=== PATIENT | female | born 1990 | race Caucasian/White ===

== ENCOUNTER → 2021-07-01 11:09 | Outpatient (CLI) | payer OTHER, SELFPAY ==
[2021-07-01 12:54] LABS: Add Manual Diff / Slide Review NO; Basophils Absolute Auto 0 /uL (0-100); Basophils Percent Auto 0.6 % (0-2); Eosinophils Absolute Auto 100 /uL (0-450); Eosinophils Percent Auto 0.7 % (2-4); Hematocrit 40.1 % (36-46); Hemoglobin 13.9 g/dL (12.0-16.0); Lymphocytes Absolute Auto 2700 /uL (1100-4500); Lymphocytes Percent Auto 35.7 % (25-40); Mean Corpuscular HGB Conc 34.7 % (30-36); Mean Corpuscular Volume 89.4 fL (80-100); Monocytes Absolute Auto 400 /uL (0-900); Monocytes Percent Auto 5.5 % (3-14); Neutrophils Absolute Auto 4400 /uL (1500-7000); Neutrophils Percent Auto 57.5 % (50-75); Platelet Count 290 X10^3/uL (150-400); Red Blood Cell Count 4.49 X10^6/uL (4.0-5.2); Red Cell Distribution Width 12.9 % (11.6-14.8); White Blood Cell Count 7.6 X10^3/uL (4.5-11.0)
[2021-07-01 13:15] LABS: Alanine Aminotransferase 19 IU/L (<35); Albumin Globulin Ratio 1.9 (1.0-2.8); Alkaline Phosphatase 47 U/L (38-126); Aspartate Aminotransferase 24 IU/L (14-36); BUN Creatinine Ratio 12.3 (6-22); Bilirubin Total 0.9 mg/dL (0.2-1.3); Blood Urea Nitrogen 9 mg/dL (7-17); Carbon Dioxide 24 mmol/L (22-32); Chloride 103 mmol/L (98-107); Estimated Glomerular Filt Rate > 60.0 mL/min (>60); Globulin 2.7 g/dL (1.7-4.1); Glucose 91 mg/dL (70-100); HEMOLYSIS < 15 (0-50); Potassium 4.1 mmol/L (3.4-5.1); Sodium 139 mmol/L (137-145); Total Protein 7.7 g/dL (6.3-8.2)
== END ==
PROVIDERS: Referring Provider Family Medicine; Visit Provider Family Medicine
DX: N92.0 Excessive and frequent menstruation with regular cycle (principal); Z00.00 Encounter for general adult medical examination without abnormal findings; Z87.42 Personal history of other diseases of the female genital tract
CPT/HCPCS: 36415; 80053; 84443; 85025

== ENCOUNTER → 2021-08-18 14:32 | Outpatient (CLI) | payer OTHER, SELFPAY ==
--- NOTE | 2021-08-18 14:35 | DI.RAD.S_ITS ---
PROCEDURE: XR LUMBAR SPINE 2-3V INDICATIONS: PAIN AFTER FALL TECHNIQUE: 3 views of the lumbar spine were acquired. COMPARISON: [facility], CT, CT ABDOMEN PELVIS WITH CONTRAST, 02/17/2021, 18:52. FINDINGS: Bones: 6 [id number] vertebrae are present versus 5 non rib-bearing vertebral bodies with tiny riblets at T12. No comparison studies available to confirm number of paired ribs. There is normal bony alignment. No acute vertebral body compression fractures. No suspicious bony lesions. Minimal lower lumbar spondylosis. Soft tissues: Overlying bowel gas pattern is normal. No suspicious soft tissue calcifications. IMPRESSION: Lumbar spine without acute fracture or traumatic malalignment. Dictated by: Reynold Christy M.D. on 08/18/2021 at 15:09 Approved by: Reynold Christy M.D. on 08/18/2021 at 15:12
== END ==
PROVIDERS: PCP Family Medicine; Referring Provider Internal Medicine; Visit Provider Internal Medicine
DX: M54.50 Low back pain, unspecified (principal); G89.11 Acute pain due to trauma
CPT/HCPCS: 72100

== ENCOUNTER 2023-04-21 10:29 | Emergency (ER) | payer OTHER, SELFPAY ==
[2023-04-21 10:30] VITALS: BP 149/94; PULSE 103; RESP 16; TEMP 36.4; O2SAT 97; BMI 25.0
[2023-04-21 10:40] VITALS: PULSE 107; O2SAT 98
--- NOTE | 2023-04-21 10:49 | DI.US.S_ITS ---
PROCEDURE: US PELVIC COMPLETE INDICATIONS: LEFT LOWER QUADRANT PAIN TECHNIQUE: Real-time scanning was performed of the pelvic organs, with image documentation. Additional endovaginal scanning was necessary due to incomplete visualization of the adnexal and endometrial structures by transabdominal scanning. COMPARISON: None. FINDINGS: Uterus: Status post hysterectomy. Ovaries: The right ovary measures 2.6 x 1.3 x 2.1 cm, with a calculated ovarian volume of 3.8 cc. The left ovary measures 3.3 x 1.3 x 1.5 cm, with a calculated ovarian volume of 3.5 cc. The ovaries have a normal sonographic appearance. Less than 12 follicles can be seen in each ovary. No adnexal masses are seen. Other: No pathologic free abdominal or pelvic fluid. IMPRESSION: No sonographic signs of ovarian torsion. No acute abnormality identified. Status post hysterectomy. Approved by: Orlin Willard M.D. on 04/21/2023 at 12:26
--- NOTE | 2023-04-21 10:49 | ED.GENADULT ---
HPI - General Adult General Chief complaint: Abdominal Pain Stated complaint: LL ABD pain Time Seen by Provider: 04/21/23 10:40 Source: patient Mode of arrival: Ambulatory History of Present Illness HPI narrative: 32-year-old female with history of known left ovarian cyst presents with a chief complaint of gradually worsening left lower quadrant pain over the course of the day. She states she went to bed in her normal state of health and woke up with some pain that has been gradually worsening. Her pain is significantly worse when she moves and improves with rest. She denies any radiation of the pain. She states it is sharp, stabbing and quite intense. She is nauseated but denies any vomiting. She had a bowel movement this morning and denies urinary complaints such as dysuria, frequency or urgency Related Data Home Medications Medication Instructions Recorded Confirmed Control Pill ( Control) 1 tab PO EVERY DAY ##0 05/27/08 celecoxib 100 mg capsule (Celebrex) 100 mg PO 0800 ##0 01/23/13 fluoxetine 10 mg capsule (Prozac) 75 mg PO QDAY ##0 01/23/13 pregabalin 25 mg capsule (Lyrica) 25 mg PO BID ##2 01/23/13 quetiapine 100 mg tablet (Seroquel) 100 mg PO BID ##0 01/23/13 topiramate 100 mg tablet (Topamax) 100 mg PO ##0 01/23/13 zolpidem 10 mg tablet (Ambien) 10 mg PO HS ##0 01/23/13 Previous Rx's Medication Instructions Recorded etonogestrel 0.12 mg-ethinyl 1 icr VG SEE INSTRUCTIONS #2 units 01/23/13 estradiol 0.015 mg/24 hr vaginal ring (NuvaRing) amoxicillin 875 mg-potassium 1 tab PO Q12H #20 tabs 04/21/23 clavulanate 125 mg tablet fluconazole 150 mg tablet 150 mg PO Q3D 2 doses #2 tabs 04/21/23 hydrocodone 5 mg-acetaminophen 325 1 tab PO Q4-6H PRN pain #10 tabs 04/21/23 mg tablet ondansetron 4 mg disintegrating 4 mg PO TID-QID PRN nausea and 04/21/23 tablet vomiting #10 tabs Allergies Allergy/AdvReac Type Severity Reaction Status Date / Time bupropion [BUPROPION] Allergy Unknown Verified 04/21/23 10:42 gabapentin [GABAPENTIN] Allergy Unknown Verified 04/21/23 10:42 Review of Systems Review of Systems Narrative: GENERAL: Denies chills, fatigue, malaise, fever, sweats. HEENT: Denies sinus pain, ear pain, sore throat, difficulty swallowing, dizziness. RESPIRATORY: Denies dyspnea, cough, wheezing, hemoptysis, sputum. CARDIOVASCULAR: Denies chest pain, palpitations, orthopnea, edema, GASTROINTESTINAL: See HPI : Denies dysuria, frequency, incontinence, hematuria, urinary retention. MUSCULOSKELETAL: denies weakness, joint pain, or bony pain SKIN: Denies rash, skin lesions, or other NEUROLOGIC: Denies weakness, headache, numbness, change in speech, confusion, seizures, incoordination. PSYCHIATRIC: No concerning psychosocial issues. 12 point review of systems is negative except for those stated above Patient History Social History Smoking Status: Unknown if ever smoked Smoking Status: Unknown if ever smoked alcohol intake frequency: holidays/special occasions only Substance Use Type: does not use Exam Narrative Exam Narrative: GENERAL: [32] year old patient appears stated age. Well-developed patient, in mild distress. HEAD: Atraumatic. Normocephalic. EYES: Pupils equal round and reactive. Extraocular motions intact. No scleral icterus. No injection or drainage. ENT: Nose without bleeding, purulent drainage. Throat without erythema, tonsillar hypertrophy or exudate. Airway patent. NECK: Trachea midline. Non tender CARDIOVASCULAR: Regular rate and rhythm without murmurs, gallops, or rubs. RESPIRATORY: Clear to auscultation. Breath sounds equal bilaterally. No wheezes, rales, or rhonchi. GASTROINTESTINAL: Abdomen soft, LLQ pain, localized voluntary guarding, nondistended. EXTREMITIES: No edema or joint tenderness. BACK: Nontender without deformity or crepitance. No flank tenderness. NEURO: AOx3. SKIN: No rash or erythema of visible areas Initial Vital Signs Initial Vital Signs: Vital Signs Temperature 97.5 F L 04/21/23 10:30 Pulse Rate 103 H 04/21/23 10:30 Respiratory Rate 16 04/21/23 10:30 Blood Pressure 149/94 H 04/21/23 10:30 Pulse Oximetry 97 04/21/23 10:30 Oxygen Delivery Method Room Air 04/21/23 10:30 Course Orders Ordered: Discontinued Medications Hydromorphone HCl (Hydromorphone 0.5 Mg Inj) 0.5 mg IV NOW ONE Stop: 04/21/23 12:26 Last Admin: 04/21/23 12:30 Dose: 0.5 mg Documented By: JEANINE Sodium Chloride (Normal Saline 0.9%) 1,000 mls @ 1,000 mls/hr IV BOLUS ONE Stop: 04/21/23 12:14 Last Infusion: 04/21/23 12:26 Dose: 0 mls/hr Documented By: Admin: 04/21/23 11:25 Dose: 1,000 mls/hr Documented By: JEANINE Ketorolac Tromethamine (Ketorolac 30 Mg/Ml Vial) 15 mg IV NOW ONE Stop: 04/21/23 11:16 Last Admin: 04/21/23 11:25 Dose: 15 mg Documented By: JEANINE Vital Signs Vital signs: Vital Signs - 8 hr 04/21/23 10:30 04/21/23 10:40 04/21/23 11:00 Temperature 97.5 F L Pulse Rate 103 H 107 H 94 H Respiratory Rate 16 Blood Pressure 149/94 H Pulse Oximetry 97 98 99 Oxygen Delivery Method Room Air Medical Decision Making Lab Data 04/21/23 11:00 04/21/23 11:00 Labs: Lab Results 04/21/23 04/21/23 04/21/23 Range/Units 10:34 11:00 11:00 WBC 7.3 (4.5-11.0) X10^3/uL RBC 4.73 (4.0-5.2) X10^6/uL Hgb 14.6 (12.0-16.0) g/dL Hct 41.1 (36-46) % MCV 86.8 (80-100) fL MCH 30.7 (26-34) PG MCHC 35.4 (30-36) % RDW 12.5 (11.6-14.8) % Plt Count 284 (150-400) X10^3/uL Neut % (Auto) 51.3 (50-75) % Lymph % (Auto) 43.2 H (25-40) % [place] % (Auto) 4.2 (3-14) % Eos % (Auto) 0.7 L (2-4) % Baso % (Auto) 0.6 (0-2) % Neut # (Auto) 3700 (4140-0772) /uL Lymph # (Auto) 3200 (4254-7579) /uL [place] # (Auto) 300 (0-900) /uL Eos # (Auto) 100 (0-450) /uL Baso # (Auto) 0 (0-100) /uL Sodium 138 (137-145) mmol/L Potassium 3.9 (3.4-5.1) mmol/L Chloride 104 (98-107) mmol/L Carbon Dioxide 23 (22-32) mmol/L BUN 10 (7-17) mg/dL Creatinine 0.65 (0.52-1.04) mg/dL Estimated GFR > 60 (>60) mL/min BUN/Creatinine Ratio 15.4 (6-22) Glucose 92 (70-100) mg/dL Calcium 9.8 (8.4-10.2) mg/dL Total Bilirubin 1.0 (0.2-1.3) mg/dL AST 29 (14-36) IU/L ALT 20 (<35) IU/L Alkaline Phosphatase 41 (38-126) U/L Total Protein 8.1 (6.3-8.2) g/dL Albumin 5.0 (3.5-5.0) g/dL Globulin 3.1 (1.7-4.1) g/dL Albumin/Globulin Ratio 1.6 (1.0-2.8) Urine RBC 0-1/hpf (0-5/HPF) Urine WBC None seen (0-5/HPF) Ur Squamous Epith Cells 0-1 /hpf (0-5/HPF) Urine Bacteria Moderate (10-30) H (None) Ur Culture Indicated? Specimen cultured Urine Dip Bedside Urine Glucose Negative Bedside Urine Bilirubin - Negative Bedside Urine Ketone +/- 5 Urine Specific [place] 1.010 Bedside Urine Occult Blood ++ Bedside Urine pH 6.0 Bedside Urine Protein - Negative Bedside Urine Urobilinogen - Negative Bedside Urine Nitrite - Negative Bedside Urine Leukocytes - Negative Esterase Point of care testing: Urine Dip Bedside Urine Glucose Negative Bedside Urine Bilirubin - Negative Bedside Urine Ketone +/- 5 Urine Specific [place] 1.010 Bedside Urine Occult Blood ++ Bedside Urine pH 6.0 Bedside Urine Protein - Negative Bedside Urine Urobilinogen - Negative Bedside Urine Nitrite - Negative Bedside Urine Leukocytes - Negative Esterase MDM Narrative Medical decision making narrative: [32] year old patient presents with GI complaints lower abdominal Multiple etiologies for patient's symptoms considered including, but not limited to: [Bowel obstruction versus infectious diarrhea versus ovarian problem versus kidney stone versus other] Prior Charts reviewed in our EMR Primary Historian: patient Labs reviewed and interpreted by myself: No significant abnormalities requiring a specific intervention Imaging reviewed: CT demonstrates colonic wall thickening involving the transverse descending and sigmoid colon, mild diverticulosis without diverticulitis., pelvic ultrasound shows no significant abnormality Patient's symptoms improved over duration of stay with above-stated therapies. Pain is well controlled, she is tolerating orals, vital signs stable. Nausea with episodes of diarrhea and crampy, colicky abdominal pain was stable labs and imaging showing colitis in the absence of obstruction, perforation or abscess Findings and discharge diagnosis discussed with patient/family followed by verbalization of understanding Return precautions discussed with patient/family whom verbalize understanding of diagnosis and plan Discharge Plan Departure Patient Disposition: Home Clinical Impression: Colitis Instructions: DI for Abdominal Pain-Adult Activity Restrictions/Additional Instructions: *You have been diagnosed with [abdominal pain likely due to mild colitis] *What to do: *Please continue to take your regular medications as directed. [x ] New medication prescriptions sent to your pharmacy: [[facility] ] *Please follow up with your primary care provider in 2-3 days, call for an appointment. Let them know you were seen in the Emergency Department and that we ask that you be seen in follow up. We will electronically transmit a record of today's note if your PCP is in our system *Please consider a clear liquid diet for the next 24-48 hours and then slowly advance to regular as tolerated. Also, try to avoid alcohol, nicotine, caffeine, spicy, acidic or fatty foods as this may worsen your symptoms *If you do not have a primary care provider please contact the [facility] Resource line at [phone]. They will ask some questions about your medical history and help get you set up with a doctor in the community. *Return to Emergency Department if you should have any new, worsening or concerning symptoms, such as [fever greater than 101 F, shaking chills, worsening pain, persistent vomiting or other bothersome symptoms] You have been prescribed a short course of narcotic medications. These are potentially dangerous and addictive medications that should be used carefully. While on these medications you cannot drive or operate heavy machinery. Additionally, you cannot sign legal documents or perform any duties such as this. Many people get constipated on narcotic medications so it would be advisable to discuss stool softeners with the pharmacist when you lemon picker your prescription. Please understand that we cannot provide further refills of narcotics or controlled substances through the ED and your pain management will need to be through your Primary Care Provider Prescriptions: New fluconazole 150 mg tablet 150 mg PO Q3D Qty: 2 0RF Rx Instructions: may repeat second dose 72 hrs after first dose if symptoms persist hydrocodone-acetaminophen 5-325 mg tablet 1 tab PO Q4-6H PRN (Reason: pain) Qty: 10 0RF ondansetron 4 mg tablet,disintegrating 4 mg PO TID-QID PRN (Reason: nausea and vomiting) Qty: 10 0RF amoxicillin-pot clavulanate 875-125 mg tablet 1 tab PO Q12H Qty: 20 0RF No Action Control Pill ( Control) 1 tab PO EVERY DAY Qty: 0 zolpidem [Ambien] 10 MG tablet 10 mg PO HS Qty: 0 quetiapine [Seroquel] 100 MG tablet 100 mg PO BID Qty: 0 fluoxetine [Prozac] 10 MG capsule 75 mg PO QDAY Qty: 0 celecoxib [Celebrex] 100 MG capsule 100 mg PO 0800 Qty: 0 topiramate [Topamax] 100 MG tablet 100 mg PO Qty: 0 pregabalin [Lyrica] 25 MG capsule 25 mg PO BID Qty: 2 etonogestrel-ethinyl estradiol [NuvaRing] 1 EACH ring 1 icr VG SEE INSTRUCTIONS Qty: 2 1RF Referrals: Sebastián Brown MD [Primary Care Provider] - Stand Alone Forms: Patient Portal/API
[2023-04-21 11:00] VITALS: PULSE 94; O2SAT 99
[2023-04-21] MEDS: SODIUM CHLORIDE 0.9% 1,000 ML 1000 ML IV (11:25)
[2023-04-21] MEDS: KETOROLAC 30 MG/ML VIAL 15 MG IV (11:25)
[2023-04-21 11:36] LABS: Add Manual Diff / Slide Review NO; Basophils Absolute Auto 0 /uL (0-100); Basophils Percent Auto 0.6 % (0-2); Eosinophils Absolute Auto 100 /uL (0-450); Eosinophils Percent Auto 0.7 % (2-4); Hematocrit 41.1 % (36-46); Hemoglobin 14.6 g/dL (12.0-16.0); Lymphocytes Absolute Auto 3200 /uL (1100-4500); Lymphocytes Percent Auto 43.2 % (25-40); Mean Corpuscular HGB Conc 35.4 % (30-36); Mean Corpuscular Hemoglobin 30.7 PG (26-34); Mean Corpuscular Volume 86.8 fL (80-100); Monocytes Absolute Auto 300 /uL (0-900); Monocytes Percent Auto 4.2 % (3-14); Neutrophils Absolute Auto 3700 /uL (1500-7000); Neutrophils Percent Auto 51.3 % (50-75); Platelet Count 284 X10^3/uL (150-400); Red Blood Cell Count 4.73 X10^6/uL (4.0-5.2); Red Cell Distribution Width 12.5 % (11.6-14.8); White Blood Cell Count 7.3 X10^3/uL (4.5-11.0)
[2023-04-21 11:41] LABS: Bacteria Urine Moderate (10-30); Culture Indicated Urine Specimen Cultured; RBC Urine 0-1/HPF (0-5/HPF); Squamous Epithelial Cell Urine 0-1 /HPF (0-5/HPF); WBC Urine None Seen (0-5/HPF)
[2023-04-21 11:42] LABS: Alanine Aminotransferase 20 IU/L (<35); Albumin Globulin Ratio 1.6 (1.0-2.8); Alkaline Phosphatase 41 U/L (38-126); Aspartate Aminotransferase 29 IU/L (14-36); BUN Creatinine Ratio 15.4 (6-22); Blood Urea Nitrogen 10 mg/dL (7-17); Calcium 9.8 mg/dL (8.4-10.2); Carbon Dioxide 23 mmol/L (22-32); Chloride 104 mmol/L (98-107); Estimated Glomerular Filt Rate > 60 mL/min (>60); Globulin 3.1 g/dL (1.7-4.1); Glucose 92 mg/dL (70-100); HEMOLYSIS < 15 (0-50); Potassium 3.9 mmol/L (3.4-5.1); Sodium 138 mmol/L (137-145); Total Protein 8.1 g/dL (6.3-8.2)
[2023-04-21] MEDS: HYDROMORPHONE 0.5 MG INJ IV (12:30)
--- NOTE | 2023-04-21 12:34 | DI.CT.S_ITS ---
PROCEDURE: CT ABDOMEN PELVIS W CON INDICATIONS: severe LLQ pain, normal US TECHNIQUE: After the administration of oral and IV contrast, axial sections were acquired from the lung bases to the pubic symphysis. Coronal and sagittal reformats were performed. For radiation dose reduction, the following was used: automated exposure control, adjustment of mA and/or kV according to patient size. COMPARISON: [facility], US, US PELVIC COMPLETE, 04/21/2023, 11:09. [facility], CT, CT ABDOMEN PELVIS WITH CONTRAST, 02/17/2021, 18:52. FINDINGS: Image quality: Excellent. Lung bases: Unremarkable. Heart: No significant findings. ABDOMEN: Liver: Unremarkable. Gallbladder: Unremarkable. Biliary ducts: Unremarkable. Pancreas: Unremarkable. Spleen: Unremarkable. Adrenal Glands: Unremarkable. Kidneys and Ureters: Unremarkable. Stomach and Bowel: Stomach, small bowel loops, and colon are normal in caliber. A few colonic diverticula are present. No findings to suggest acute diverticulitis. Question mild colonic wall thickening in transverse, descending and sigmoid colon. Peritoneum: No abnormal intraperitoneal fluid. No free air. Ventral Wall: No hernia. Abdominal Nodes: No retroperitoneal or mesenteric adenopathy by size criteria. Vessels: Aorta and inferior vena cava are normal in size. PELVIS: Pelvic Organs: Uterus is absent. Ovaries are not well seen. No pathological free-fluid in pelvis. Bladder: Unremarkable. Pelvic Nodes: No enlarged lymph nodes. Miscellaneous: No inguinal hernias are seen. Bones: Unremarkable. IMPRESSION: 1. Question mild colonic wall thickening involving the transverse, descending and sigmoid colon. Differential diagnoses are mild colitis versus artifact from lack of contrast distension. 2. Mild diverticulosis without diverticulitis. Dictated by: Herbie March M.D. on 04/21/2023 at 13:12 Approved by: Herbie March M.D. on 04/21/2023 at 13:16
[2023-04-21 13:21] VITALS: BP 119/78; PULSE 82; O2SAT 99
[2023-04-21 13:30] VITALS: PULSE 70; O2SAT 98
[2023-04-21 14:00] VITALS: PULSE 71; O2SAT 98
== END 2023-04-21 14:13 | disposition home or self-care (01) ==
PROVIDERS: Emergency Provider Emergency Medicine; PCP Family Medicine
DX: K52.9 Noninfective gastroenteritis and colitis, unspecified (principal)
CPT/HCPCS: 36415; 74177; 76830; 76856; 80053; 81003; 81015; 85025; 87086; 93975; 96361; 96374; 96375; 99284; J1170; J1885; Q9967

== ENCOUNTER → 2023-05-16 15:55 | Outpatient (CLI) | payer OTHER, SELFPAY ==
--- NOTE | 2023-05-16 | DI.US.S_ITS ---
PROCEDURE: US PELVIC COMPLETE INDICATIONS: LEFT PELVIC PAIN. RULE OUT TORSION TECHNIQUE: Real-time scanning was performed of the pelvic organs, with image documentation. Additional endovaginal scanning was necessary due to incomplete visualization of the adnexal and endometrial structures by transabdominal scanning. COMPARISON: [facility], US, US PELVIC COMPLETE, 04/21/2023, 11:09. FINDINGS: Uterus: No uterus is seen. A history of partial hysterectomy is given by the patient. Ovaries: The right ovary measures 3.5 x 2.8 x 2.7 cm, with a calculated ovarian volume of 13.8 cc. The right ovary is largely composed of a simple appearing cyst that measures 3 cm. The left ovary measures 3.6 x 1.6 x 2.1 cm, with a calculated ovarian volume of 6.5 cc. Within the left ovary, there is an apparent collapsing cyst that measures up to 1.8 cm. Less than 12 follicles can be seen in each ovary. No adnexal masses are seen. Normal appearing venous and arterial waveforms are confirmed to each ovary. Other: No pathologic free abdominal or pelvic fluid. IMPRESSION: Negative for ovarian torsion. Apparent collapsing cyst of the left ovary, which may be related to a hemorrhagic cyst. If it would be clinically appropriate, a followup pelvic ultrasound could be considered in 6 weeks to assure resolution/ improvement. The right ovary is largely composed of a 3 cm cyst, which is at the upper limits of normal for a physiologic cyst. This could also be reassessed on follow-up. We strive to produce accurate, complete, and clear reports of imaging services. To assist us in improving patient care, this report was composed using standard report templates and voice recognition software. Therefore, it may contain abnormal punctuation, insertions and/or omissions. Occasional wrong-word or sound-alike substitutions may occur. Though we review the report and make efforts to correct it, we do recommend that the report be read carefully in proper context to recognize any text inaccuracies. Dictated by: Osmel Hardy M.D. on 05/16/2023 at 15:51 Approved by: Osmel Hardy M.D. on 05/16/2023 at 15:57
== END ==
PROVIDERS: PCP Family Medicine; Referring Provider Registered Nurse; Visit Provider Registered Nurse
DX: N83.201 Unspecified ovarian cyst, right side (principal); R10.32 Left lower quadrant pain; R11.0 Nausea; R19.5 Other fecal abnormalities
CPT/HCPCS: 76830; 76856; 93975

== ENCOUNTER 2023-08-26 14:55 | Observation (INO) | payer OTHER, SELFPAY ==
[2023-08-26] VITALS (19 sets, daily range): BP systolic 97–122; BP diastolic 64–79; PULSE 78–120; RESP 8–24; TEMP 36.6–37.8; O2SAT 95–100; BMI 22.1
[2023-08-26 15:26] LABS: Add Manual Diff / Slide Review NO; Basophils Absolute Auto 100 /uL (0-100); Basophils Percent Auto 0.3 % (0-2); Eosinophils Absolute Auto 0 /uL (0-450); Eosinophils Percent Auto 0.2 % (2-4); Hematocrit 39.9 % (36-46); Lymphocytes Absolute Auto 3000 /uL (1100-4500); Lymphocytes Percent Auto 17.2 % (25-40); Mean Corpuscular Hemoglobin 30.5 PG (26-34); Mean Corpuscular Volume 87.2 fL (80-100); Monocytes Absolute Auto 600 /uL (0-900); Monocytes Percent Auto 3.1 % (3-14); Neutrophils Absolute Auto 14000 /uL (1500-7000); Neutrophils Percent Auto 79.2 % (50-75); Platelet Count 281 X10^3/uL (150-400); Red Blood Cell Count 4.58 X10^6/uL (4.0-5.2); Red Cell Distribution Width 12.7 % (11.6-14.8); White Blood Cell Count 17.7 X10^3/uL (4.5-11.0)
[2023-08-26 15:31] LABS: Alanine Aminotransferase 20 IU/L (<35); Albumin 4.7 g/dL (3.5-5.0); Albumin Globulin Ratio 1.4 (1.0-2.8); Alkaline Phosphatase 32 U/L (38-126); Aspartate Aminotransferase 23 IU/L (14-36); BUN Creatinine Ratio 21.2 (6-22); Bilirubin Total 1.4 mg/dL (0.2-1.3); Blood Urea Nitrogen 14 mg/dL (7-17); Calcium 9.8 mg/dL (8.4-10.2); Carbon Dioxide 23 mmol/L (22-32); Chloride 104 mmol/L (98-107); Estimated Glomerular Filt Rate > 60 mL/min (>60); Globulin 3.3 g/dL (1.7-4.1); Glucose 105 mg/dL (70-100); HEMOLYSIS < 15 (0-50); Lipase 88 U/L (23-300); Potassium 4.1 mmol/L (3.4-5.1); Sodium 136 mmol/L (137-145)
--- NOTE | 2023-08-26 15:38 | ED.GENADULT ---
HPI - General Adult <Dick Nguyen DO - Last Filed: 08/27/23 07:07> General Chief complaint: Abdominal Pain Stated complaint: Lower R abd pain/ Time Seen by Provider: 08/26/23 15:24 Source: patient Mode of arrival: Ambulatory History of Present Illness HPI narrative: Patient is a 33-year-old female. Who is here for evaluation of right-sided lower abdominal discomfort. Her current discomfort has been going on for the past several hours/day. She states that it is the same discomfort that she has had off and on for several months. She states that it changes from left side to right side. She has been told that she has had ovarian cysts in the past. Also told that she has had endometriosis. States the pain that she is having is very similar to her prior discomfort it is just worse this morning and did not get better when she took the medications that she normally does not home. She has had a hysterectomy secondary to abnormal vaginal bleeding and fibroids and abnormal cells on Pap smear. She still has her appendix. Still has a gallbladder. No fevers. No vomiting. Discomfort is not worse or changed or better with urination or bowel movements. Related Data Home Medications Medication Instructions Recorded Confirmed etodolac 500 mg tablet,extended 500 mg PO PRN PRN severe pain 08/26/23 09/13/23 release 24 hr sertraline 50 mg tablet 50 mg PO DAILY 08/26/23 09/13/23 Previous Rx's Medication Instructions Recorded ondansetron 4 mg disintegrating 4 mg PO TID-QID PRN nausea and 04/21/23 tablet vomiting #10 tabs Allergies Allergy/AdvReac Type Severity Reaction Status Date / Time chlorhexidine Allergy Severe Blister Verified 09/13/23 15:37 bupropion [BUPROPION] Allergy Unknown Verified 09/13/23 15:37 gabapentin [GABAPENTIN] Allergy Unknown Verified 09/13/23 15:37 Review of Systems <Dick Nguyen DO - Last Filed: 08/27/23 07:07> Constitutional Constitutional: Reports system reviewed and no additional complaints, except as documented Cardiovascular Cardiovascular: Reports system reviewed and no additional complaints, except as documented Respiratory Respiratory: Reports system reviewed and no additional complaints, except as documented Gastrointestinal Gastrointestinal: Reports system reviewed and no additional complaints, except as documented Genitourinary Genitourinary: Reports system reviewed and no additional complaints, except as documented Integumentary/Breasts Skin/Breast: Reports system reviewed and no additional complaints, except as documented Hematologic/Lymphatic On Anticoagulants: No Patient History <Dick Nguyen DO - Last Filed: 08/27/23 07:07> Surgical History History of laparoscopic appendectomy Social History household members: spouse Smoking Status: Former smoker alcohol intake: current Smoking Status: Former smoker alcohol intake frequency: holidays/special occasions only Substance Use Type: does not use Exam <DO Joanna Arambula Last Filed: 08/27/23 07:07> Initial Vital Signs Initial Vital Signs: Vital Signs Temperature 100.1 F H 08/26/23 15:00 Pulse Rate 120 H 08/26/23 15:00 Respiratory Rate 16 08/26/23 15:00 Blood Pressure 116/72 08/26/23 15:00 Pulse Oximetry 98 08/26/23 15:00 Oxygen Delivery Method Room Air 08/26/23 15:00 Const General: No ill appearing Other: Uncomfortable appearing HENPR Head: normal to inspection and normocephalic Resp Effort & Inspection: normal respiratory effort Auscultation: clear to auscultation bilaterally Cardio Rate: regular rate Rhythm: regular rhythm GI Inspection: normal to inspection and non-distended Palpation: soft, No firm, guarding (Right-sided abdomen) and tender (Right-sided abdomen) Back/Spine/Pelvis Back: No CVA tenderness Skin General: no rashes or lesions noted Neuro General: patient alert, patient awake and moves all extremities Extrem General: normal to inspection <Mariano Vasquez MD - Last Filed: 10/02/23 03:16> Initial Vital Signs Initial Vital Signs: Vital Signs Temperature 100.1 F H 08/26/23 15:00 Pulse Rate 120 H 08/26/23 15:00 Respiratory Rate 16 08/26/23 15:00 Blood Pressure 116/72 08/26/23 15:00 Pulse Oximetry 98 08/26/23 15:00 Oxygen Delivery Method Room Air 08/26/23 15:00 Course <DO Joanna Arambula Last Filed: 08/27/23 07:07> Orders Ordered: Discontinued Medications Acetaminophen (Acetaminophen 325 Mg Tablet) 650 mg PO Q6H [facility] Last Admin: 08/27/23 10:01 Dose: 650 mg Documented By: Admin: 08/27/23 05:03 Dose: 650 mg Documented By: KRUPA Celecoxib (Celecoxib 200 Mg Capsule) 200 mg PO BID [facility] Last Admin: 08/27/23 08:37 Dose: 200 mg Documented By: BATLAZAR Heparin Sodium (Porcine) (Heparin 5,000 Unit/Ml Vial) 5,000 unit SUBCUT BID [facility] Last Admin: 08/27/23 08:37 Dose: 5,000 unit Documented By: BALTAZAR Hydromorphone HCl (Hydromorphone 1 Mg Inj) 1 mg IV NOW ONE Stop: 08/26/23 17:09 Last Admin: 08/26/23 17:20 Dose: 1 mg Documented By: DARIUS Hydromorphone HCl (Hydromorphone 0.5 Mg Inj) 0.5 mg IV NOW ONE Stop: 08/26/23 18:51 Last Admin: 08/26/23 18:58 Dose: 0.5 mg Documented By: DARIUS Hydromorphone HCl (Hydromorphone 1 Mg Inj) 1 mg IV NOW ONE Stop: 08/26/23 20:44 Last Admin: 08/26/23 20:56 Dose: 1 mg Documented By: DARIUS Hydromorphone HCl (Hydromorphone 0.5 Mg Inj) 0.5 mg IV Q2H PRN PRN Reason: Pain, Severe (7-10) Last Admin: 08/26/23 22:52 Dose: 0.5 mg Documented By: KRUPA Sodium Chloride (Normal Saline 0.9%) 1,000 mls @ 1,000 mls/hr IV BOLUS ONE Stop: 08/26/23 16:42 Last Infusion: 08/26/23 16:33 Dose: Infused Documented By: Admin: 08/26/23 15:54 Dose: 1,000 mls/hr Documented By: DARIUS Ceftriaxone Sodium 1,000 mg/ (Sodium Chloride) 100 mls @ 200 mls/hr IV NOW ONE Stop: 08/26/23 20:16 Last Infusion: 08/26/23 21:03 Dose: Infused Documented By: Admin: 08/26/23 20:32 Dose: 200 mls/hr Documented By: DARIUS Metronidazole (Flagyl) 500 mg in 100 mls @ 100 mls/hr IV NOW ONE Stop: 08/26/23 21:14 Last Infusion: 08/26/23 21:49 Dose: Infused Documented By: Admin: 08/26/23 20:45 Dose: 100 mls/hr Documented By: DARIUS Sodium Chloride (Normal Saline 0.9%) 1,000 mls @ 125 mls/hr IV CONT SARAH Last Admin: 08/27/23 04:27 Dose: 125 mls/hr Documented By: Infusion: 08/27/23 04:27 Dose: Infused Documented By: Admin: 08/26/23 22:51 Dose: 125 mls/hr Documented By: KRUPA Ceftriaxone Sodium 500 mg/ (Dextrose) 50 mls @ 100 mls/hr IV Q24H [facility] Ceftriaxone Sodium 1,000 mg/ (Sodium Chloride) 100 mls @ 200 mls/hr IV Q24H [facility] Last Admin: 08/27/23 12:27 Dose: 200 mls/hr Documented By: BALTAZAR Ketorolac Tromethamine (Ketorolac 30 Mg/Ml Vial) 15 mg IV NOW ONE Stop: 08/27/23 04:38 Last Admin: 08/27/23 05:02 Dose: 15 mg Documented By: KRUPA Morphine Sulfate (Morphine 4 Mg/Ml Inj) 4 mg IV NOW ONE Stop: 08/26/23 15:41 Last Admin: 08/26/23 15:53 Dose: 4 mg Documented By: DARIUS Naloxone HCl (Naloxone 0.4 Mg/Ml Vial) 0.2 mg IV Q2MIN PRN PRN Reason: Opiate Reversal Ondansetron HCl (Ondansetron 4 Mg Odt) 4 mg PO NOW PRN PRN Reason: Nausea And Vomiting Ondansetron HCl (Ondansetron 4 Mg/2 Ml Inj) 4 mg IV NOW PRN PRN Reason: Nausea And Vomiting Last Admin: 08/26/23 15:54 Dose: 4 mg Documented By: DARIUS Ondansetron HCl (Ondansetron 4 Mg/2 Ml Inj) 4 mg IV NOW ONE Stop: 08/26/23 18:51 Last Admin: 08/26/23 18:59 Dose: 4 mg Documented By: DARIUS Ondansetron HCl (Ondansetron 4 Mg/2 Ml Inj) 4 mg IV Q4HR PRN PRN Reason: Nausea And Vomiting Ondansetron HCl (Ondansetron 4 Mg Odt) 4 mg PO Q6H PRN PRN Reason: nausea and vomiting Oxycodone HCl (Oxycodone Ir 5 Mg Tablet) 5 mg PO Q3H PRN PRN Reason: Pain, Moderate (4-6) Oxycodone HCl (Oxycodone Ir 10 Mg Tablet) 10 mg PO Q3H PRN PRN Reason: Pain, Severe (7-10) Last Admin: 08/27/23 11:09 Dose: 10 mg Documented By: Admin: 08/27/23 08:36 Dose: 10 mg Documented By: Admin: 08/27/23 05:52 Dose: 10 mg Documented By: KRUPA Prochlorperazine (Prochlorperazine 10 Mg/2 Ml Vial) 5 mg IV NOW ONE Stop: 08/26/23 20:44 Last Admin: 08/26/23 20:57 Dose: 5 mg Documented By: DARIUS Scopolamine (Scopolamine 1 Patch) 1 patch TOP NOW ONE Stop: 08/27/23 04:38 Last Admin: 08/27/23 05:03 Dose: 1 patch Documented By: KRUPA Sertraline HCl (Sertraline 50 Mg Tablet) 50 mg PO DAILY [facility] Last Admin: 08/27/23 08:37 Dose: 50 mg Documented By: BALTAZAR Vital Signs Vital signs: Vital Signs - 8 hr 08/26/23 15:00 08/26/23 15:22 08/26/23 15:23 Temperature 100.1 F H Pulse Rate 120 H 97 H Respiratory Rate 16 Blood Pressure 116/72 117/73 Pulse Oximetry 98 98 Oxygen Delivery Method Room Air 08/26/23 15:23 08/26/23 15:30 08/26/23 15:30 Temperature Pulse Rate 100 H 99 H Respiratory Rate 21 Blood Pressure 119/79 Pulse Oximetry 98 98 Oxygen Delivery Method 08/26/23 16:00 08/26/23 16:00 08/26/23 16:30 Temperature Pulse Rate 89 Respiratory Rate 8 L Blood Pressure 108/71 110/75 Pulse Oximetry 96 Oxygen Delivery Method 08/26/23 16:30 08/26/23 16:53 08/26/23 16:53 Temperature Pulse Rate 82 91 H Respiratory Rate 10 L 14 Blood Pressure 119/72 Pulse Oximetry 95 100 Oxygen Delivery Method 08/26/23 17:00 08/26/23 17:31 08/26/23 17:31 Temperature Pulse Rate 78 96 H Respiratory Rate 15 24 Blood Pressure 120/74 Pulse Oximetry 96 98 Oxygen Delivery Method 08/26/23 18:00 08/26/23 18:00 08/26/23 18:30 Temperature Pulse Rate 102 H Respiratory Rate 17 Blood Pressure 103/68 97/64 Pulse Oximetry 96 Oxygen Delivery Method 08/26/23 18:30 08/26/23 18:43 08/26/23 18:43 Temperature 98.1 F Pulse Rate 96 H 101 H Respiratory Rate 17 19 Blood Pressure 104/67 Pulse Oximetry 96 97 Oxygen Delivery Method 08/26/23 19:00 08/26/23 19:00 08/26/23 19:30 Temperature Pulse Rate 107 H 89 Respiratory Rate 16 12 Blood Pressure 110/76 Pulse Oximetry 98 97 Oxygen Delivery Method 08/26/23 19:30 08/26/23 20:00 08/26/23 20:00 Temperature Pulse Rate 92 H Respiratory Rate 12 Blood Pressure 109/69 106/72 Pulse Oximetry 96 Oxygen Delivery Method 08/26/23 20:30 08/26/23 20:30 08/26/23 21:00 Temperature Pulse Rate 94 H Respiratory Rate 19 Blood Pressure 122/78 108/67 Pulse Oximetry 97 Oxygen Delivery Method 08/26/23 21:00 Temperature Pulse Rate 91 H Respiratory Rate 15 Blood Pressure Pulse Oximetry 96 Oxygen Delivery Method <Mariano Vasquez MD - Last Filed: 10/02/23 03:16> Orders Ordered: Discontinued Medications Acetaminophen (Acetaminophen 325 Mg Tablet) 650 mg PO Q6H [facility] Last Admin: 08/27/23 10:01 Dose: 650 mg Documented By: Admin: 08/27/23 05:03 Dose: 650 mg Documented By: KRUPA Celecoxib (Celecoxib 200 Mg Capsule) 200 mg PO BID [facility] Last Admin: 08/27/23 08:37 Dose: 200 mg Documented By: EV Heparin Sodium (Porcine) (Heparin 5,000 Unit/Ml Vial) 5,000 unit SUBCUT BID [facility] Last Admin: 08/27/23 08:37 Dose: 5,000 unit Documented By: EV Hydromorphone HCl (Hydromorphone 1 Mg Inj) 1 mg IV NOW ONE Stop: 08/26/23 17:09 Last Admin: 08/26/23 17:20 Dose: 1 mg Documented By: DARIUS Hydromorphone HCl (Hydromorphone 0.5 Mg Inj) 0.5 mg IV NOW ONE Stop: 08/26/23 18:51 Last Admin: 08/26/23 18:58 Dose: 0.5 mg Documented By: DARIUS Hydromorphone HCl (Hydromorphone 1 Mg Inj) 1 mg IV NOW ONE Stop: 08/26/23 20:44 Last Admin: 08/26/23 20:56 Dose: 1 mg Documented By: DARIUS Hydromorphone HCl (Hydromorphone 0.5 Mg Inj) 0.5 mg IV Q2H PRN PRN Reason: Pain, Severe (7-10) Last Admin: 08/26/23 22:52 Dose: 0.5 mg Documented By: KRUPA Sodium Chloride (Normal Saline 0.9%) 1,000 mls @ 1,000 mls/hr IV BOLUS ONE Stop: 08/26/23 16:42 Last Infusion: 08/26/23 16:33 Dose: Infused Documented By: Admin: 08/26/23 15:54 Dose: 1,000 mls/hr Documented By: DARIUS Ceftriaxone Sodium 1,000 mg/ (Sodium Chloride) 100 mls @ 200 mls/hr IV NOW ONE Stop: 08/26/23 20:16 Last Infusion: 08/26/23 21:03 Dose: Infused Documented By: Admin: 08/26/23 20:32 Dose: 200 mls/hr Documented By: DARIUS Metronidazole (Flagyl) 500 mg in 100 mls @ 100 mls/hr IV NOW ONE Stop: 08/26/23 21:14 Last Infusion: 08/26/23 21:49 Dose: Infused Documented By: Admin: 08/26/23 20:45 Dose: 100 mls/hr Documented By: DARIUS Sodium Chloride (Normal Saline 0.9%) 1,000 mls @ 125 mls/hr IV CONT SARAH Last Admin: 08/27/23 04:27 Dose: 125 mls/hr Documented By: Infusion: 08/27/23 04:27 Dose: Infused Documented By: Admin: 08/26/23 22:51 Dose: 125 mls/hr Documented By: KRUPA Ceftriaxone Sodium 500 mg/ (Dextrose) 50 mls @ 100 mls/hr IV Q24H [facility]AH Ceftriaxone Sodium 1,000 mg/ (Sodium Chloride) 100 mls @ 200 mls/hr IV Q24H [facility] Last Admin: 08/27/23 12:27 Dose: 200 mls/hr Documented By: BALTAZAR Ketorolac Tromethamine (Ketorolac 30 Mg/Ml Vial) 15 mg IV NOW ONE Stop: 08/27/23 04:38 Last Admin: 08/27/23 05:02 Dose: 15 mg Documented By: KRUPA Morphine Sulfate (Morphine 4 Mg/Ml Inj) 4 mg IV NOW ONE Stop: 08/26/23 15:41 Last Admin: 08/26/23 15:53 Dose: 4 mg Documented By: DARIUS Naloxone HCl (Naloxone 0.4 Mg/Ml Vial) 0.2 mg IV Q2MIN PRN PRN Reason: Opiate Reversal Ondansetron HCl (Ondansetron 4 Mg Odt) 4 mg PO NOW PRN PRN Reason: Nausea And Vomiting Ondansetron HCl (Ondansetron 4 Mg/2 Ml Inj) 4 mg IV NOW PRN PRN Reason: Nausea And Vomiting Last Admin: 08/26/23 15:54 Dose: 4 mg Documented By: DARIUS Ondansetron HCl (Ondansetron 4 Mg/2 Ml Inj) 4 mg IV NOW ONE Stop: 08/26/23 18:51 Last Admin: 08/26/23 18:59 Dose: 4 mg Documented By: DARIUS Ondansetron HCl (Ondansetron 4 Mg/2 Ml Inj) 4 mg IV Q4HR PRN PRN Reason: Nausea And Vomiting Ondansetron HCl (Ondansetron 4 Mg Odt) 4 mg PO Q6H PRN PRN Reason: nausea and vomiting Oxycodone HCl (Oxycodone Ir 5 Mg Tablet) 5 mg PO Q3H PRN PRN Reason: Pain, Moderate (4-6) Oxycodone HCl (Oxycodone Ir 10 Mg Tablet) 10 mg PO Q3H PRN PRN Reason: Pain, Severe (7-10) Last Admin: 08/27/23 11:09 Dose: 10 mg Documented By: Admin: 08/27/23 08:36 Dose: 10 mg Documented By: Admin: 08/27/23 05:52 Dose: 10 mg Documented By: KRUPA Prochlorperazine (Prochlorperazine 10 Mg/2 Ml Vial) 5 mg IV NOW ONE Stop: 08/26/23 20:44 Last Admin: 08/26/23 20:57 Dose: 5 mg Documented By: DARIUS Scopolamine (Scopolamine 1 Patch) 1 patch TOP NOW ONE Stop: 08/27/23 04:38 Last Admin: 08/27/23 05:03 Dose: 1 patch Documented By: KRUPA Sertraline HCl (Sertraline 50 Mg Tablet) 50 mg PO DAILY [facility] Last Admin: 08/27/23 08:37 Dose: 50 mg Documented By: BALTAZAR Vital Signs Vital signs: Vital Signs - 8 hr 08/26/23 15:00 08/26/23 15:22 08/26/23 15:23 Temperature 100.1 F H Pulse Rate 120 H 97 H Respiratory Rate 16 Blood Pressure 116/72 117/73 Pulse Oximetry 98 98 Oxygen Delivery Method Room Air 08/26/23 15:23 08/26/23 15:30 08/26/23 15:30 Temperature Pulse Rate 100 H 99 H Respiratory Rate 21 Blood Pressure 119/79 Pulse Oximetry 98 98 Oxygen Delivery Method 08/26/23 16:00 08/26/23 16:00 08/26/23 16:30 Temperature Pulse Rate 89 Respiratory Rate 8 L Blood Pressure 108/71 110/75 Pulse Oximetry 96 Oxygen Delivery Method 08/26/23 16:30 08/26/23 16:53 08/26/23 16:53 Temperature Pulse Rate 82 91 H Respiratory Rate 10 L 14 Blood Pressure 119/72 Pulse Oximetry 95 100 Oxygen Delivery Method 08/26/23 17:00 08/26/23 17:31 08/26/23 17:31 Temperature Pulse Rate 78 96 H Respiratory Rate 15 24 Blood Pressure 120/74 Pulse Oximetry 96 98 Oxygen Delivery Method 08/26/23 18:00 08/26/23 18:00 08/26/23 18:30 Temperature Pulse Rate 102 H Respiratory Rate 17 Blood Pressure 103/68 97/64 Pulse Oximetry 96 Oxygen Delivery Method 08/26/23 18:30 08/26/23 18:43 08/26/23 18:43 Temperature 98.1 F Pulse Rate 96 H 101 H Respiratory Rate 17 19 Blood Pressure 104/67 Pulse Oximetry 96 97 Oxygen Delivery Method 08/26/23 19:00 08/26/23 19:00 08/26/23 19:30 Temperature Pulse Rate 107 H 89 Respiratory Rate 16 12 Blood Pressure 110/76 Pulse Oximetry 98 97 Oxygen Delivery Method 08/26/23 19:30 08/26/23 20:00 08/26/23 20:00 Temperature Pulse Rate 92 H Respiratory Rate 12 Blood Pressure 109/69 106/72 Pulse Oximetry 96 Oxygen Delivery Method 08/26/23 20:30 08/26/23 20:30 08/26/23 21:00 Temperature Pulse Rate 94 H Respiratory Rate 19 Blood Pressure 122/78 108/67 Pulse Oximetry 97 Oxygen Delivery Method 08/26/23 21:00 Temperature Pulse Rate 91 H Respiratory Rate 15 Blood Pressure Pulse Oximetry 96 Oxygen Delivery Method Medical Decision Making <Dick Nguyen, DO - Last Filed: 08/27/23 07:07> Lab Data Lab results reviewed: Yes I reviewed the patient's lab results. 08/27/23 05:45 08/26/23 15:10 Labs: Lab Results 08/26/23 08/26/23 Range/Units 15:10 17:17 WBC 17.7 H (4.5-11.0) X10^3/uL RBC 4.58 (4.0-5.2) X10^6/uL Hgb 14.0 (12.0-16.0) g/dL Hct 39.9 (36-46) % MCV 87.2 (80-100) fL MCH 30.5 (26-34) PG MCHC 35.0 (30-36) % RDW 12.7 (11.6-14.8) % Plt Count 281 (150-400) X10^3/uL Neut % (Auto) 79.2 H (50-75) % Lymph % (Auto) 17.2 L (25-40) % [place] % (Auto) 3.1 (3-14) % Eos % (Auto) 0.2 L (2-4) % Baso % (Auto) 0.3 (0-2) % Neut # (Auto) 31200 H (1963-7679) /uL Lymph # (Auto) 3000 (0560-6025) /uL [place] # (Auto) 600 (0-900) /uL Eos # (Auto) 0 (0-450) /uL Baso # (Auto) 100 (0-100) /uL ESR 8 (0-20) MM/HR Sodium 136 L (137-145) mmol/L Potassium 4.1 (3.4-5.1) mmol/L Chloride 104 (98-107) mmol/L Carbon Dioxide 23 (22-32) mmol/L BUN 14 (7-17) mg/dL Creatinine 0.66 (0.52-1.04) mg/dL Estimated GFR > 60 (>60) mL/min BUN/Creatinine Ratio 21.2 (6-22) Glucose 105 H (70-100) mg/dL Lactate 0.6 L (0.7-2.1) mmol/L Calcium 9.8 (8.4-10.2) mg/dL Total Bilirubin 1.4 H (0.2-1.3) mg/dL AST 23 (14-36) IU/L ALT 20 (<35) IU/L Alkaline Phosphatase 32 L (38-126) U/L C-Reactive Protein 1.2 H (<1.0) mg/dL Total Protein 8.0 (6.3-8.2) g/dL Albumin 4.7 (3.5-5.0) g/dL Globulin 3.3 (1.7-4.1) g/dL Albumin/Globulin Ratio 1.4 (1.0-2.8) Lipase 88 (23-300) U/L Procalcitonin 0.07 (<0.5) ng/mL Ur Bilirubin Confirm TNP Urine RBC None seen (0-5/HPF) Urine WBC 1-5/hpf (0-5/HPF) Ur Squamous Epith Cells 0-1 /hpf (0-5/HPF) Urine Bacteria Few (2-10) H (None) Urine Mucus 3+ H (Negative) Ur Culture Indicated? Cult not indicated Urine Dip Bedside Urine Glucose Negative Bedside Urine Bilirubin +++ 4 Bedside Urine Ketone +/- 5 Urine Specific [place] 1.015 Bedside Urine Occult Blood - Negative Bedside Urine pH 6.0 Bedside Urine Protein +/- 15 Bedside Urine Urobilinogen - Negative Bedside Urine Nitrite - Negative Bedside Urine Leukocytes - Negative Esterase Point of care testing: Urine Dip Bedside Urine Glucose Negative Bedside Urine Bilirubin +++ 4 Bedside Urine Ketone +/- 5 Urine Specific [place] 1.015 Bedside Urine Occult Blood - Negative Bedside Urine pH 6.0 Bedside Urine Protein +/- 15 Bedside Urine Urobilinogen - Negative Bedside Urine Nitrite - Negative Bedside Urine Leukocytes - Negative Esterase Imaging Data US - abdomen: Radiologist's Impression: PROCEDURE: US ABDOMEN LIMITED INDICATIONS: RIGHT UPPER QUADRANT PAIN TECHNIQUE: Real-time focused scanning was performed of the abdomen, with image documentation. COMPARISON: [facility], US, US PELVIC COMPLETE, 08/26/2023, 16:15. [facility], CT, CT ABDOMEN PELVIS W CON, 08/26/2023, 17:27. FINDINGS: The liver is prominent in size and demonstrates no suspicious lesions. The liver demonstrates normal overall echogenicity. No findings of gallstones or sludge are seen. The gallbladder wall is not thickened, measuring 3 mm or less. No specific pericholecystic fluid is seen. The sonographic Marcano sign is negative. There is no biliary dilatation, the common bile duct measures 3 mm. No significant pancreatic abnormality is seen on these images. The visualized right kidney is unremarkable, without hydronephrosis. IMPRESSION: The gallbladder demonstrates a normal sonographic appearance. No biliary dilatation is seen. 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 Additional endovaginal scanning was necessary due to incomplete visualization of the adnexal and endometrial structures by transabdominal scanning. COMPARISON: [facility], CT, CT ABDOMEN PELVIS W CON, 08/26/2023, 17:27. [facility], US ABDOMEN LIMITED, 08/26/2023, 16:07. [facility], US PELVIC COMPLETE, 05/16/2023, 16:16. FINDINGS: Uterus: Hysterectomy. Ovaries: The right ovary measures 3.3 x 1.2 x 1.1 cm, with a calculated ovarian volume of 2.3 cc. The left ovary measures 4.7 x 2.4 x 2.4 cm, with a calculated ovarian volume of 13.8 cc. The left ovary demonstrates a thick wall hemorrhagic cyst that measures up to 2.6 cm. Less than 12 follicles can be seen in each ovary. No adnexal masses are seen. Normal appearing venous flow is confirmed to both ovaries. The arterial flow the left ovary is normal. The arterial flow the right ovary is believed to be normal, yet is not well seen. Other: No pathologic free abdominal or pelvic fluid. Within the right lower quadrant, the appendix is tentatively identified, with a dilated tip that measures up to 8.4 mm. The appendix otherwise is unremarkable. Note is made of rebound tenderness within the right lower quadrant. No enlarged lymph nodes can be seen within the quadrant. IMPRESSION: The appendix is apparently identified, with mild dilatation of the tip of the appendix. No additional appendix abnormality is identified. The technologist notes rebound tenderness of the right lower quadrant. There is a hemorrhagic cyst involving the left ovary. If it would be clinically appropriate, a followup pelvic ultrasound could be considered in 6 weeks to assure resolution/ improvement. Status post hysterectomy. CT scan - abdomen/pelvis: Radiologist's Impression: PROCEDURE: CT ABDOMEN PELVIS W CON INDICATIONS: RLQ abd pain eval for appy TECHNIQUE: After the administration of intravenous contrast, axial sections acquired from the lung bases to the pubic symphysis. Coronal and sagittal reformats were performed. For radiation dose reduction, the following was used: automated exposure control, adjustment of mA and/or kV according to patient size. COMPARISON: [facility], US, US PELVIC COMPLETE, 08/26/2023, 16:15. [facility], US, US ABDOMEN LIMITED, 08/26/2023, 16:07. [facility], CT, CT ABDOMEN PELVIS W CON, 04/21/2023, 13:03. FINDINGS: Image quality: Diagnostic. Lower Chest: No significant findings. ABDOMEN: Liver: No solid mass. Gallbladder: No radiopaque gallstones or wall thickening. Biliary ducts: No biliary dilation. Pancreas: No ductal dilation. Spleen: Size is within normal limits. Adrenal Glands: No adrenal nodules. Kidneys and Ureters: No hydronephrosis. No solid mass. No complex renal cystic lesion which requires follow up. Stomach and Bowel: In this patient with this given history, scrutiny is given to the appendix. No appendix (either normal or abnormal) is identified on this study. No focal right lower quadrant inflammatory change can be seen. no dilated loops of small bowel are seen. No significant colonic abnormality can be seen. The stomach is moderately distended with fluid. No significant gastric abnormality is seen. Peritoneum: No abnormal intraperitoneal fluid. No free air. Ventral Wall: No hernia. Abdominal Nodes: No retroperitoneal or mesenteric adenopathy by size criteria. Vessels: Aorta and inferior vena cava are normal in size. PELVIS: Pelvic Organs: Prior hysterectomy. There is an apparent left ovarian hemorrhagic cyst measuring 2.6 cm. Bladder: Unremarkable. Pelvic Nodes: No enlarged lymph nodes. Miscellaneous: No inguinal hernias are seen. Bones: No aggressive osseous abnormality. IMPRESSION: No appendix (either normal or abnormal) is identified on this study. No focal right lower quadrant inflammatory changes are seen. Apparent left ovarian hemorrhagic cyst. If it would be clinically appropriate, a followup pelvic ultrasound could be considered in 6 weeks to assure resolution/ improvement. Additional findings: Hysterectomy MDM Narrative Medical decision making narrative: Initially patient states that the discomfort that she was having was the same discomfort that she has been having off and on for the past several months however was just more intense. It is localized on the right side. At initial discussion with her regarding workup here in the emergency department. Initially we are going to start with an ultrasound to evaluate her right ovary. Her labs then started to return. Showed a bilirubin of 1.4. She was tachycardic which improved somewhat with pain medication. She then had a leukocytosis of 17. Right upper quadrant ultrasound was ordered along with the pelvic ultrasound. I was informed by the x-ray tech that potentially there was a abnormal appendix noted on the ultrasound but she could not confirm this. I then discussed this with the patient. We opted to obtain a CT scan of the abdomen and pelvis prior to formal read of the ultrasound. Care turned over to Dr. Vasquez to follow-up CT scans and disposition. <Mariano Vasquez MD - Last Filed: 10/02/23 03:16> Differential Diagnosis Differential Diagnosis: Abdominal pain, ovarian cyst, bowel perforation, abscess, appendicitis Lab Data Labs: Lab Results 08/26/23 08/26/23 Range/Units 15:10 17:17 WBC 17.7 H (4.5-11.0) X10^3/uL RBC 4.58 (4.0-5.2) X10^6/uL Hgb 14.0 (12.0-16.0) g/dL Hct 39.9 (36-46) % MCV 87.2 (80-100) fL MCH 30.5 (26-34) PG MCHC 35.0 (30-36) % RDW 12.7 (11.6-14.8) % Plt Count 281 (150-400) X10^3/uL Neut % (Auto) 79.2 H (50-75) % Lymph % (Auto) 17.2 L (25-40) % [place] % (Auto) 3.1 (3-14) % Eos % (Auto) 0.2 L (2-4) % Baso % (Auto) 0.3 (0-2) % Neut # (Auto) 63975 H (8735-4048) /uL Lymph # (Auto) 3000 (2011-5099) /uL [place] # (Auto) 600 (0-900) /uL Eos # (Auto) 0 (0-450) /uL Baso # (Auto) 100 (0-100) /uL ESR 8 (0-20) MM/HR Sodium 136 L (137-145) mmol/L Potassium 4.1 (3.4-5.1) mmol/L Chloride 104 (98-107) mmol/L Carbon Dioxide 23 (22-32) mmol/L BUN 14 (7-17) mg/dL Creatinine 0.66 (0.52-1.04) mg/dL Estimated GFR > 60 (>60) mL/min BUN/Creatinine Ratio 21.2 (6-22) Glucose 105 H (70-100) mg/dL Lactate 0.6 L (0.7-2.1) mmol/L Calcium 9.8 (8.4-10.2) mg/dL Total Bilirubin 1.4 H (0.2-1.3) mg/dL AST 23 (14-36) IU/L ALT 20 (<35) IU/L Alkaline Phosphatase 32 L (38-126) U/L C-Reactive Protein 1.2 H (<1.0) mg/dL Total Protein 8.0 (6.3-8.2) g/dL Albumin 4.7 (3.5-5.0) g/dL Globulin 3.3 (1.7-4.1) g/dL Albumin/Globulin Ratio 1.4 (1.0-2.8) Lipase 88 (23-300) U/L Procalcitonin 0.07 (<0.5) ng/mL Ur Bilirubin Confirm TNP Urine RBC None seen (0-5/HPF) Urine WBC 1-5/hpf (0-5/HPF) Ur Squamous Epith Cells 0-1 /hpf (0-5/HPF) Urine Bacteria Few (2-10) H (None) Urine Mucus 3+ H (Negative) Ur Culture Indicated? Cult not indicated Urine Dip Bedside Urine Glucose Negative Bedside Urine Bilirubin +++ 4 Bedside Urine Ketone +/- 5 Urine Specific [place] 1.015 Bedside Urine Occult Blood - Negative Bedside Urine pH 6.0 Bedside Urine Protein +/- 15 Bedside Urine Urobilinogen - Negative Bedside Urine Nitrite - Negative Bedside Urine Leukocytes - Negative Esterase Point of care testing: Urine Dip Bedside Urine Glucose Negative Bedside Urine Bilirubin +++ 4 Bedside Urine Ketone +/- 5 Urine Specific [place] 1.015 Bedside Urine Occult Blood - Negative Bedside Urine pH 6.0 Bedside Urine Protein +/- 15 Bedside Urine Urobilinogen - Negative Bedside Urine Nitrite - Negative Bedside Urine Leukocytes - Negative Esterase MDM Narrative Additional Information: Imaging not definitive for acute appendicitis though clinically patient does have appendicitis and will be presumptively treated for appendicitis. Discussed case with surgery and patient admitted for observation at [facility]. Discharge Plan Departure Patient Disposition: Admitted as Observation Clinical Impression: Abdominal pain Qualifiers: Abdominal location: right lower quadrant Qualified Code(s): R10.31 - Right lower quadrant pain Acute appendicitis Qualifiers: Acute appendicitis type: unspecified acute appendicitis type Qualified Code(s): K35.80 - Unspecified acute appendicitis Admit Date/Time: 08/26/23 21:34 Admit Provider: Bettina Gill
--- NOTE | 2023-08-26 15:39 | DI.US.S_ITS ---
PROCEDURE: US PELVIC COMPLETE INDICATIONS: RIGHT ADNEXA PAIN TECHNIQUE: Real-time scanning was performed of the pelvic organs, with image documentation. Additional endovaginal scanning was necessary due to incomplete visualization of the adnexal and endometrial structures by transabdominal scanning. COMPARISON: Located Within [facility], CT, CT ABDOMEN PELVIS W CON, 08/26/2023, 17:27. Located Within [facility], US, US ABDOMEN LIMITED, 08/26/2023, 16:07. Located Within [facility], US, US PELVIC COMPLETE, 05/16/2023, 16:16. FINDINGS: Uterus: Hysterectomy. Ovaries: The right ovary measures 3.3 x 1.2 x 1.1 cm, with a calculated ovarian volume of 2.3 cc. The left ovary measures 4.7 x 2.4 x 2.4 cm, with a calculated ovarian volume of 13.8 cc. The left ovary demonstrates a thick wall hemorrhagic cyst that measures up to 2.6 cm. Less than 12 follicles can be seen in each ovary. No adnexal masses are seen. Normal appearing venous flow is confirmed to both ovaries. The arterial flow the left ovary is normal. The arterial flow the right ovary is believed to be normal, yet is not well seen. Other: No pathologic free abdominal or pelvic fluid. Within the right lower quadrant, the appendix is tentatively identified, with a dilated tip that measures up to 8.4 mm. The appendix otherwise is unremarkable. Note is made of rebound tenderness within the right lower quadrant. No enlarged lymph nodes can be seen within the quadrant. IMPRESSION: The appendix is apparently identified, with mild dilatation of the tip of the appendix. No additional appendix abnormality is identified. The technologist notes rebound tenderness of the right lower quadrant. There is a hemorrhagic cyst involving the left ovary. If it would be clinically appropriate, a followup pelvic ultrasound could be considered in 6 weeks to assure resolution/ improvement. Status post hysterectomy. We strive to produce accurate, complete, and clear reports of imaging services. To assist us in improving patient care, this report was composed using standard report templates and voice recognition software. Therefore, it may contain abnormal punctuation, insertions and/or omissions. Occasional wrong-word or sound-alike substitutions may occur. Though we review the report and make efforts to correct it, we do recommend that the report be read carefully in proper context to recognize any text inaccuracies. Dictated by: Osmel Hardy M.D. on 08/26/2023 at 16:59 Approved by: Osmel Hardy M.D. on 08/26/2023 at 17:05
--- NOTE | 2023-08-26 15:42 | DI.US.S_ITS ---
PROCEDURE: US ABDOMEN LIMITED INDICATIONS: RIGHT UPPER QUADRANT PAIN TECHNIQUE: Real-time focused scanning was performed of the abdomen, with image documentation. COMPARISON: [facility], US, US PELVIC COMPLETE, 08/26/2023, 16:15. [facility], CT, CT ABDOMEN PELVIS W CON, 08/26/2023, 17:27. FINDINGS: The liver is prominent in size and demonstrates no suspicious lesions. The liver demonstrates normal overall echogenicity. No findings of gallstones or sludge are seen. The gallbladder wall is not thickened, measuring 3 mm or less. No specific pericholecystic fluid is seen. The sonographic Marcano sign is negative. There is no biliary dilatation, the common bile duct measures 3 mm. No significant pancreatic abnormality is seen on these images. The visualized right kidney is unremarkable, without hydronephrosis. IMPRESSION: The gallbladder demonstrates a normal sonographic appearance. No biliary dilatation is seen. Dictated by: Osmel Hardy M.D. on 08/26/2023 at 16:58 Approved by: Osmel Hardy M.D. on 08/26/2023 at 16:59
[2023-08-26] MEDS: MORPHINE 4 MG/ML INJ IV (15:53)
[2023-08-26] MEDS: ONDANSETRON 4 MG/2 ML INJ IV ×2 (15:54→18:59)
[2023-08-26] MEDS: SODIUM CHLORIDE 0.9% 1,000 ML 1000 ML IV (15:54)
[2023-08-26 16:01] LABS: Lactate (Lactic Acid) 0.6 mmol/L (0.7-2.1)
[2023-08-26 16:19] LABS: Procalcitonin 0.07 ng/mL (<0.5)
--- NOTE | 2023-08-26 17:05 | PC.NURSE ---
Dr. Nguyen at bedside
--- NOTE | 2023-08-26 17:08 | DI.CT.S_ITS ---
PROCEDURE: CT ABDOMEN PELVIS W CON INDICATIONS: RLQ abd pain eval for appy TECHNIQUE: After the administration of intravenous contrast, axial sections acquired from the lung bases to the pubic symphysis. Coronal and sagittal reformats were performed. For radiation dose reduction, the following was used: automated exposure control, adjustment of mA and/or kV according to patient size. COMPARISON: [facility], US, US PELVIC COMPLETE, 08/26/2023, 16:15. [facility], US, US ABDOMEN LIMITED, 08/26/2023, 16:07. [facility], CT, CT ABDOMEN PELVIS W CON, 04/21/2023, 13:03. FINDINGS: Image quality: Diagnostic. Lower Chest: No significant findings. ABDOMEN: Liver: No solid mass. Gallbladder: No radiopaque gallstones or wall thickening. Biliary ducts: No biliary dilation. Pancreas: No ductal dilation. Spleen: Size is within normal limits. Adrenal Glands: No adrenal nodules. Kidneys and Ureters: No hydronephrosis. No solid mass. No complex renal cystic lesion which requires follow up. Stomach and Bowel: In this patient with this given history, scrutiny is given to the appendix. No appendix (either normal or abnormal) is identified on this study. No focal right lower quadrant inflammatory change can be seen. no dilated loops of small bowel are seen. No significant colonic abnormality can be seen. The stomach is moderately distended with fluid. No significant gastric abnormality is seen. Peritoneum: No abnormal intraperitoneal fluid. No free air. Ventral Wall: No hernia. Abdominal Nodes: No retroperitoneal or mesenteric adenopathy by size criteria. Vessels: Aorta and inferior vena cava are normal in size. PELVIS: Pelvic Organs: Prior hysterectomy. There is an apparent left ovarian hemorrhagic cyst measuring 2.6 cm. Bladder: Unremarkable. Pelvic Nodes: No enlarged lymph nodes. Miscellaneous: No inguinal hernias are seen. Bones: No aggressive osseous abnormality. IMPRESSION: No appendix (either normal or abnormal) is identified on this study. No focal right lower quadrant inflammatory changes are seen. Apparent left ovarian hemorrhagic cyst. If it would be clinically appropriate, a followup pelvic ultrasound could be considered in 6 weeks to assure resolution/ improvement. Additional findings: Hysterectomy Dictated by: Osmel Hardy M.D. on 08/26/2023 at 17:06 Approved by: Osmel Hardy M.D. on 08/26/2023 at 17:09
[2023-08-26] MEDS: HYDROMORPHONE 1 MG INJ IV ×2 (17:20→20:56)
--- NOTE | 2023-08-26 17:35 | PC.NURSE ---
pt to and from CT w/o issue. reports curren control of pain. call light in close reach. heat pack offered and accepted.
[2023-08-26 17:59] LABS: RBC Urine None Seen (0-5/HPF)
[2023-08-26 18:00] LABS: Bacteria Urine Few (2-10); Culture Indicated Urine Cult Not Indicated; Mucus Urine 3+ (Negative); Squamous Epithelial Cell Urine 0-1 /HPF (0-5/HPF); WBC Urine 1-5/HPF (0-5/HPF)
--- NOTE | 2023-08-26 18:51 | PC.NURSE ---
abdiel reports nausea; dr. joyce notified. to place orders.
[2023-08-26] MEDS: HYDROMORPHONE 0.5 MG INJ IV ×2 (18:58→22:52)
[2023-08-26 19:06] LABS: Erythrocyte Sedimentation Rate 8 MM/HR (0-20)
[2023-08-26 19:56] LABS: C-Reactive Protein Quant 1.2 mg/dL (<1.0)
--- NOTE | 2023-08-26 20:15 | PC.NURSE ---
Dr. Vasquez notified of pt's c/o pain; no new orders at this time.
[2023-08-26] MEDS: cefTRIAXone 1,000 MG in SODIUM CHLORIDE 0.9% 100 ML 200 MG IV (20:32)
--- NOTE | 2023-08-26 20:43 | PC.NURSE ---
pt continues to c/o pain, 04/30, and now c/o nausea. Dr. Vasquez notified. to place orders.
[2023-08-26] MEDS: metroNIDAZOLE 500 MG/100 ML PIGGYBACK 100 MG IV (20:45)
[2023-08-26] MEDS: PROCHLORPERAZINE 10 MG/2 ML VIAL 5 MG IV (20:57)
--- NOTE | 2023-08-26 21:42 | PC.NURSE ---
Dr. Vasquez at bedside
[2023-08-26] MEDS: SODIUM CHLORIDE 0.9% 1,000 ML 125 ML IV (22:51)
--- NOTE | 2023-08-26 23:53 | PC.NURSE ---
power and recovery shift engineer: Patient arrived onto the floor from the ED @ 2200. Patient is AxOx4, ambulatory with stand-by assistance. Vital signs are stable, O2 saturation 97% on RA. Denies chest pain, dizziness, SOB. Complaints of 6/10 RLQ pain, was nauseous earlier but relieved w/ medication given in ED. IV Dilaudid given for pain w/ good effect. Clear liquid diet, tolerating well. Tele monitoring in place. IVF infusing as ordered. Oriented to room & call-light, fall-precautions in place.
[2023-08-27] MEDS: SODIUM CHLORIDE 0.9% 1,000 ML 125 ML IV (04:27)
[2023-08-27 04:46] VITALS: BP 114/65; PULSE 87; RESP 18; TEMP 36.8; O2SAT 96
[2023-08-27] MEDS: KETOROLAC 30 MG/ML VIAL 15 MG IV (05:02)
[2023-08-27] MEDS: SCOPOLAMINE 1 PATCH TOP (05:03)
[2023-08-27] MEDS: ACETAMINOPHEN 325 MG TABLET 650 MG PO ×2 (05:03→10:01)
[2023-08-27] MEDS: OXYCODONE IR 10 MG TABLET PO ×3 (05:52→11:09)
[2023-08-27 06:12] LABS: Add Manual Diff / Slide Review NO; Basophils Absolute Auto 0 /uL (0-100); Basophils Percent Auto 0.6 % (0-2); Eosinophils Absolute Auto 100 /uL (0-450); Eosinophils Percent Auto 0.7 % (2-4); Hematocrit 31.6 % (36-46); Hemoglobin 11.3 g/dL (12.0-16.0); Lymphocytes Absolute Auto 2500 /uL (1100-4500); Lymphocytes Percent Auto 34.9 % (25-40); Mean Corpuscular HGB Conc 35.8 % (30-36); Mean Corpuscular Hemoglobin 31.5 PG (26-34); Mean Corpuscular Volume 87.9 fL (80-100); Monocytes Absolute Auto 400 /uL (0-900); Monocytes Percent Auto 5.5 % (3-14); Neutrophils Absolute Auto 4200 /uL (1500-7000); Neutrophils Percent Auto 58.3 % (50-75); Platelet Count 212 X10^3/uL (150-400); Red Blood Cell Count 3.59 X10^6/uL (4.0-5.2); Red Cell Distribution Width 12.9 % (11.6-14.8); White Blood Cell Count 7.2 X10^3/uL (4.5-11.0)
--- NOTE | 2023-08-27 07:21 | DI.US.S_ITS ---
PROCEDURE: US ABDOMEN LIMITED INDICATIONS: RE-EVALUATE APPENEDIX. SEE PRIOR US/CT FROM YESTERDAY. TECHNIQUE: Real-time focused scanning was performed of the abdomen with attention to the appendix, with image documentation. COMPARISON: [facility], CT, CT ABDOMEN PELVIS W CON, 08/26/2023, 17:27. [facility], US, US PELVIC COMPLETE, 08/26/2023, 16:15. [facility], US, US ABDOMEN LIMITED, 08/26/2023, 16:07. FINDINGS: Appendix visualization: The appendix is again believed to be partially seen by ultrasound. However, it is not well seen, secondary to overlying bowel gas. Appendix measurements: The tip of the appendix measures up to 9.2. The remainder of the appendix measures within normal limits. Trace hyperemia is seen within the mid appendix, with [id number] hyperemia seen the tip of the appendix. Associated findings: Echogenic fat: Possibly seen adjacent to the tip of the appendix. Appendiceal compressibility: Not compressible Appendicoliths: Not seen Nearby free fluid: Absent Lymphadenopathy: Absent Tenderness on exam: There is tenderness when scanning over the appendix. IMPRESSION: The appendix is again believed to be partially seen by ultrasound, with a dilated tip of the appendix. The appendix is noncompressible. Tenderness is elicited when scanning over the appendix. The appendix wall is hyperemic, particularly at the tip of the appendix. Dictated by: Osmel Hardy M.D. on 08/27/2023 at 10:46 Approved by: Osmel Hardy M.D. on 08/27/2023 at 10:53
[2023-08-27 08:20] VITALS: BP 95/52; PULSE 97; RESP 18; TEMP 36.4; O2SAT 98
[2023-08-27] MEDS: HEPARIN 5,000 UNIT/ML VIAL 5000 UNIT SUBCUT (08:37)
[2023-08-27] MEDS: SERTRALINE 50 MG TABLET PO (08:37)
[2023-08-27] MEDS: CELECOXIB 200 MG CAPSULE PO (08:37)
--- NOTE | 2023-08-27 10:28 | CM.DANOTE ---
Patient is a 33 yo female who was admitted on 08/26/23 for Abd Pain. Pt has BX FED for insurance and her PCP is Dr. Sebastián Brown. EMR was reviewed. Per MD, pt with a hx of hysterectomy and endometriosis and Surgeon Consult ordered. Per Surgeon, currently ruled out appendicitis and scan showed cyst and plan is likely to d/c today with outpt SECURITY CONTROL ROOM OFFICER follow up. Per RN, pt independent in room and no concerns noted and supportive spouse bedside. 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 No discharge planning needs identified. Plan: SW to follow for plan of d/c home later today via spouse POV and outpt OBGYN follow up and any further identified discharge planning needs. MARTA Quintero Discharge Planning/Care Management CM Discharge Assessment Start: 08/27/23 10:26 Freq: Status: Active Protocol: Document 08/27/23 10:26 BF (Rec: 08/27/23 10:27 BF [id number]) Discharge Planning Assessment Assigned Belt Loop Maker MARTA Miller DPOA/Assigned Designee Name informally spouse Advance Directives? No Advance Directives on File No History Provided By Patient,Significant Other, Medical Record Has Patient been admitted in last 30 No days? Prior Living Arrangements House Household Members spouse Type of transporation used prior to Drives own vehicle admit Independent with ADL's Yes Is patient alert and oriented? Yes Barriers to Discharge No Discharge Plan Home Transportation Arrangement spouse bedside and can transport Referrals Initiated None needed Review Status In Process Please Provide Date Initial DC 08/27/23 Assessment Was Performed Next Review Type Continued Stay Review
[2023-08-27] MEDS: cefTRIAXone 1,000 MG in SODIUM CHLORIDE 0.9% 100 ML 200 MG IV (12:27)
--- NOTE | 2023-08-27 12:35 | P.HP_ITS ---
History of Present Illness History of Present Illness Date Patient Seen: 08/27/23 Time Patient Seen: 12:35 Date of Onset of Symptoms: 08/24/23 Chief complaint: Lower R abd pain/ Narrative: Chronic pelvic pain with h/o endometriosis. Pain is 10/10 sharp and RLQ on admission. pain started on and has gotten worse. No diarrhea, no vomitting. +nausea. W/U in ED was equivocal for appendicitis. Admitted for antibiotics and observation. WBC went from 17,000 to 7,000. Pain persistent RLQ. Repeat US shows enlarged tip of appendix that is non compressible c/w appendicitis [facility] Social History household members: spouse Smoking Status: Former smoker Meds Home Medications and Allergies Home Medications Medication Instructions Recorded Confirmed Type ondansetron 4 mg disintegrating 4 mg PO TID-QID PRN nausea and 04/21/23 08/26/23 Rx tablet vomiting #10 tabs etodolac 500 mg tablet,extended 500 mg PO PRN PRN severe pain 08/26/23 08/26/23 History release 24 hr oxycodone-acetaminophen 5 mg-325 1 tab PO PRN PRN severe pain 08/26/23 08/26/23 History mg tablet sertraline 50 mg tablet 50 mg PO DAILY 08/26/23 08/26/23 History amoxicillin 500 mg-potassium 1 tab PO BID #7 tabs 08/27/23 Rx clavulanate 125 mg tablet (Augmentin) oxycodone 10 mg tablet 10 mg PO Q3H PRN Pain, Severe 08/27/23 Rx (7-10) #20 tabs Allergies Allergy/AdvReac Type Severity Reaction Status Date / Time bupropion [BUPROPION] Allergy Unknown Verified 06/02/23 08:26 gabapentin [GABAPENTIN] Allergy Unknown Verified 06/02/23 08:26 chlorhexidine AdvReac Verified 08/26/23 15:06 Review of Systems Review of Systems ROS: Yes All systems reviewed with the patient and are negative except as otherwise documented Exam Vital Signs (past 8 hours): - 08/27/23 04:46 08/27/23 08:20 Temperature 98.2 F 97.6 F Pulse Rate 87 97 H Respiratory Rate 18 18 Blood Pressure 114/65 95/52 L Pulse Oximetry 96 98 Oxygen Flow Rate 0 Oxygen Delivery Method Room Air Oxygen Flow Rate 0 Const General: cooperative, ill appearing and well hydrated Nutritional Appearance: average body habitus [facility] Head: normocephalic and atraumatic Ears: hearing grossly normal bilaterally Eyes General: appearance normal, both eyes and all related structures Periorbital: periorbital findings normal Sclera: normal sclerae Neck Neck: trachea midline Resp Effort & Inspection: normal respiratory effort and able to speak in complete sentences Cardio Rate: regular rate Rhythm: regular rhythm GI Palpation: soft and tender (RLQ tenderness to palpation) Skin General: elasticity normal and turgor normal Neuro General: patient alert, patient awake and patient oriented x3 Cognition: normal cognition Psych Mental Status: mental status grossly normal Attitude: cooperative Judgment: judgment good Objective Labs 08/27/23 05:45 08/26/23 15:10 Labs: Laboratory Results - last 24 hr 08/26/23 08/26/23 08/27/23 15:10 17:17 05:45 WBC 17.7 H 7.2 D RBC 4.58 3.59 L Hgb 14.0 11.3 L Hct 39.9 31.6 L MCV 87.2 87.9 MCH 30.5 31.5 MCHC 35.0 35.8 RDW 12.7 12.9 Plt Count 281 212 Neut % (Auto) 79.2 H 58.3 D Lymph % (Auto) 17.2 L 34.9 [place] % (Auto) 3.1 5.5 Eos % (Auto) 0.2 L 0.7 L Baso % (Auto) 0.3 0.6 Neut # (Auto) 54652 H 4200 Lymph # (Auto) 3000 2500 [place] # (Auto) 600 400 Eos # (Auto) 0 100 Baso # (Auto) 100 0 ESR 8 Sodium 136 L Potassium 4.1 Chloride 104 Carbon Dioxide 23 BUN 14 Creatinine 0.66 Estimated GFR > 60 BUN/Creatinine Ratio 21.2 Glucose 105 H Lactate 0.6 L Calcium 9.8 Total Bilirubin 1.4 H AST 23 ALT 20 Alkaline Phosphatase 32 L C-Reactive Protein 1.2 H Total Protein 8.0 Albumin 4.7 Globulin 3.3 Albumin/Globulin Ratio 1.4 Lipase 88 Procalcitonin 0.07 Ur Bilirubin Confirm TNP Urine RBC None seen Urine WBC 1-5/hpf Ur Squamous Epith Cells 0-1 /hpf Urine Bacteria Few (2-10) H Urine Mucus 3+ H Ur Culture Indicated? Cult not indicated Assessment & Plan Assessment & Plan narrative: Acute appendicitis w/o appendical lith. Responding to antibiotics. Possible endometriosis Plan: Elective lap appy with ASPARAGUS BUNCHER available to render opinion on endometriosis COVID-19 COVID-19 status: Negative Time Spent With Patient Time with patient: 30 to 49 minutes with 50% spent counseling/coordinating care
--- NOTE | 2023-08-27 12:42 | P.DS_ITS ---
History of Present Illness History of Present Illness Date Patient Seen: 08/27/23 Time Patient Seen: 12:42 Chief complaint: Lower R abd pain/ Narrative: Chronic pelvic pain with h/o endometriosis. Pain is 10/10 sharp and RLQ on admission. pain started on and has gotten worse. No diarrhea, no vomitting. +nausea. W/U in ED was equivocal for appendicitis. Admitted for antibiotics and observation. WBC went from 17,000 to 7,000. Pain persistent RLQ. Repeat US shows enlarged tip of appendix that is non compressible c/w appendicitis Discharge Providers Provider Date of admission: 08/26/23 21:34 Discharge Date: 08/27/23 Primary care physician: Sebastián Brown MD Discharge provider: Bettina Gill MD Summary Hospital Course Discharge Diagnosis: Acute appendicitis responding to antibiotic treatment, possible endometriosis. Plan: home with antibiotics, return for Elective lap appy when TALENT ACQUISITION COORDINATOR available for eval for endometriosis. Hospital Course: Indeterminate radiologic findings of appendicitis that where positive on repeat US. Responding to antibiotics. Decision made to discharge home with antibiotics and return Monday for outpatient lap appy. Status at Discharge Cognitive/behavioral status at discharge: at baseline, oriented Functional status at discharge: independent ambulation Overall status at discharge: patient is progressing back to baseline Time Spent with Patient Time spent: Less than 30 minutes Exam Vital Signs (past 8 hours): - 08/27/23 04:46 08/27/23 08:20 Temperature 98.2 F 97.6 F Pulse Rate 87 97 H Respiratory Rate 18 18 Blood Pressure 114/65 95/52 L Pulse Oximetry 96 98 Oxygen Flow Rate 0 Oxygen Delivery Method Room Air Oxygen Flow Rate 0 Narrative Exam Narrative: same as H and P Objective Labs 08/27/23 05:45 08/26/23 15:10 Labs: Laboratory Results - last 24 hr 08/26/23 08/26/23 08/27/23 15:10 17:17 05:45 WBC 17.7 H 7.2 D RBC 4.58 3.59 L Hgb 14.0 11.3 L Hct 39.9 31.6 L MCV 87.2 87.9 MCH 30.5 31.5 MCHC 35.0 35.8 RDW 12.7 12.9 Plt Count 281 212 Neut % (Auto) 79.2 H 58.3 D Lymph % (Auto) 17.2 L 34.9 [place] % (Auto) 3.1 5.5 Eos % (Auto) 0.2 L 0.7 L Baso % (Auto) 0.3 0.6 Neut # (Auto) 32321 H 4200 Lymph # (Auto) 3000 2500 [place] # (Auto) 600 400 Eos # (Auto) 0 100 Baso # (Auto) 100 0 ESR 8 Sodium 136 L Potassium 4.1 Chloride 104 Carbon Dioxide 23 BUN 14 Creatinine 0.66 Estimated GFR > 60 BUN/Creatinine Ratio 21.2 Glucose 105 H Lactate 0.6 L Calcium 9.8 Total Bilirubin 1.4 H AST 23 ALT 20 Alkaline Phosphatase 32 L C-Reactive Protein 1.2 H Total Protein 8.0 Albumin 4.7 Globulin 3.3 Albumin/Globulin Ratio 1.4 Lipase 88 Procalcitonin 0.07 Ur Bilirubin Confirm TNP Urine RBC None seen Urine WBC 1-5/hpf Ur Squamous Epith Cells 0-1 /hpf Urine Bacteria Few (2-10) H Urine Mucus 3+ H Ur Culture Indicated? Cult not indicated PFSH Social History household members: spouse Smoking Status: Former smoker Discharge Assessment & Plan Assessment and Plan Assessment: Likely combination of acute uncomplicated appendicitis and endometriosis. Plan of Treatment: Continue on po antibiotics and return for outpatient Lap appy when operations/dispatch available for intraoperative consultation on endometriosis Discharge Plan Discharge Plan Patient Disposition: Home Provider Discharge Comment: We will call you tomorrow morning for a time to come in for Laparoscopic appendectomy. Discharge orders & Medications Prescriptions: New oxycodone 10 mg Tablet 10 mg PO Q3H PRN (Reason: Pain, Severe (7-10)) Qty: 20 0RF amoxicillin-pot clavulanate [Augmentin] 500-125 mg tablet 1 tab PO BID Qty: 7 0RF Continued etodolac 500 mg tablet extended release 24 hr 500 mg PO PRN PRN (Reason: severe pain) oxycodone-acetaminophen 5-325 mg tablet 1 tab PO PRN PRN (Reason: severe pain) sertraline 50 mg Tablet 50 mg PO DAILY ondansetron 4 mg tablet,disintegrating 4 mg PO TID-QID PRN (Reason: nausea and vomiting) Qty: 10 0RF Follow up/Referrals: Sebastián Brown MD [Primary Care Provider] - Diet/Activity/Treatments Diet: Diet as Tolerated Diet comment: NPO at midnight Skin/Wound/Dressing Care Report to your healthcare provider any signs of infection, such as:: chills, fever and night sweats Visit Report/Discharge Packet Stand Alone Forms: Patient Portal/API, Stroke Signs & Symptoms Discharge Data Primary Care Provider: Sebastián Brown Attending Provider: Bettina Gill Admit Date/Time: 08/26/23 21:34
[2023-08-27 12:44] VITALS: BP 109/67
[2023-08-27 13:03] VITALS: BP 89/52; PULSE 83; RESP 16; TEMP 37.2; O2SAT 96
--- NOTE | 2023-08-27 13:25 | PC.NURSE ---
Discharge note: Patient discharged home per MD order. Discussed importance of antibiotic adherence, NPO after MN, and signs of worsening symptoms. Rx to be picked up on way home. General surgery to call patient on 08/28/2022 for Laparascopic Appendectomy surgical time in the am. Home via private vehicle, accompanied by spouse.
== END 2023-08-27 13:31 | disposition home or self-care (01) ==
LOC: ED 17:59 → AC 21:36
PROVIDERS: Emergency Medicine; Admitting Provider Surgery; Emergency Provider Emergency Medicine; PCP Family Medicine; Referring Provider Emergency Medicine; Visit Provider Surgery
DX: K35.80 Unspecified acute appendicitis (principal)
CPT/HCPCS: 36415; 74177; 76705; 76830; 76856; 80053; 81003; 81015; 83605; 83690; 84145; 85025; 85651; 86140; 87086; 93975; 96361; 96365; 96366; 96367; 96372; 96375; 96376; 99284; G0378; J0696; J0780; J1170; J1644; J1885; J2270; J2405; Q9967

== ENCOUNTER 2023-08-28 09:59 | Day surgery (SDC) | payer OTHER, SELFPAY ==
[2023-08-26 22:18] VITALS: BMI 22.1
[2023-08-28] VITALS (11 sets, daily range): BP systolic 100–120; BP diastolic 52–77; PULSE 70–106; RESP 9–17; TEMP 36.7–37.6; O2SAT 91–97; BMI 22.1
--- NOTE | 2023-08-28 | PATH_ITS ---
[facility] Accession Number: [id number] No. of containers..02 Tissue . 01 Material submitted: . PART A: appendix - APPENDIX PART B: perineum - PERINEUM BIOPSY . 01 Diagnosis: A. Appendix, Appendectomy: Acute appendicitis and periappendicitis. . B. Perineum, Biopsy: Minute fragment of fibroconnective tissue with reactive changes. See comment. [facility] 08/31/2023 1156 Local . 01 Comment: B. The findings are nonspecific. . 01 Electronically signed: . Samreen Khanna MD, Pathologist NPI- [id number] . 01 Gross description: . A. Received in formalin, labeled with the patient's name, , and appendix, consists of a weaver vermiform appendix measuring 4.7 cm in length by 0.7 cm in diameter with weaver smooth serosa and adherent material consistent with exudate. The margin is inked blue. Sectioning reveals a patent lumen averaging 0.3 cm in diameter. The osuna are weaver, average 0.3 cm thick, with no perforations or lesions identified. Information Management Officer sections to include one-half of the bisected distal tip, margin, and cross section are submitted in cassette A1. B. Received in formalin, labeled with the patient's name, , and perineum biopsy, consists of a single pale weaver small presumed soft tissue fragment measuring 0.2 x 0.1 x 0.1 cm. One aspect is inked blue. The specimen is submitted intact in cassette B1. . The specimen may not survive processing. ([id number]) /MRV 08/29/2023 1237 Local . 01 Pathologist provided ICD-10: K35.80 . 01 CPT . 180170, [id number] Specimen Comment: A courtesy copy of this report has been sent to [phone] Performed at: 01 [facility] [address] [place] [address], [place], [place] [id number] MD Russell Morgan MD Phone: [phone]
[2023-08-28] MEDS: LACTATED RINGERS 1,000 ML 100 ML IV ×2 (10:47→13:19)
--- NOTE | 2023-08-28 11:25 | PM.PREOP ---
Pre-operative Note Interval Note History & Physical reviewed/Exam performed by Physician: Yes Changes to H&P: No
--- NOTE | 2023-08-28 12:01 | SUR.OPER ---
Supine on padded OR bed, head on pillow, RIGHT ARM secured on padded arm boards at <90 degrees abduction, legs uncrossed, safety belt at thigh, tape over blanket over lower legs.
[2023-08-28] MEDS: BUPIVACAINE 0.25% (PF) 30 ML, EPINEPHrine 0.15 MG INJ (12:14)
--- NOTE | 2023-08-28 12:34 | PM.OP.1 ---
Operative Date/Time/Diagnoses Date of procedure: 08/28/23 Time of procedure: 12:34 Pre-op diagnosis: Acute appendicitis, endometriosis Post-op diagnosis: same Procedure & Clinicians Procedure: Diagnostic laparoscopy along with laparoscopic appendectomy Same procedure as scheduled: Yes Indications: Acute appendicitis, possible endometriosis Surgeon: Bettina Gill Click Yes if Unassisted: Yes Anesthesia Type: General and Local Operative Notes Findings: Acute appendicitis stage I. Endometriosis in the pelvis on the peritoneum, taken for biopsy. Hemorrhagic pelvic fluid Closure Type: primary Specimen(s): other (Appendix, peritoneal biopsy) Estimated Blood Loss (mL): 10 Blood products transfused: none Procedure in detail: Preop diagnosis: Acute appendicitis, endometriosis Postop diagnosis: Same Operative procedure: Diagnostic laparoscopy with biopsy and laparoscopic appendectomy Surgeon: Radha Gill MD Intraoperative consult: Shanda Morales MD Findings: Acute appendicitis, stage I. Endometriosis. Hemorrhagic pelvic fluid Procedure: Patient placed in a supine position. Prepped and draped in sterile fashion to expose her abdomen. Infraumbilical port site was placed using an open technique a 12 mm port. Insufflation began all other ports were placed under direct vision including a 5 mm port in the suprapubic area and a 5 mm port in the left lateral abdomen. Appendix was identified lifted cephalad for exposure of the mesentery. Mesentery and lateral attachments were taken down with electrocautery and excellent hemostasis. Base of the appendix was healthy in nature, a blue load linear stapler was used to amputate the appendix. It was then placed into an Endo-Catch bag and pulled through the infraumbilical port site intact. Review of the pelvis demonstrated right-sided simple ovarian cyst, hemorrhagic pelvic fluid. Could not identify the left ovary due to adhesions. Small amount of chocolate colored implants in the pelvic peritoneum. [place] forceps was used to grasp cold biopsy sample of the endometriosis. Hemorrhagic fluid was suctioned clear. Cyst was left in place We then removed all ports to began closure. Closure consisted of interrupted 0 Vicryl for fascial closure. Skin was closed with running and interrupted 4-0 Vicryl. Steri-Strips and sterile dressings were placed. Patient was awakened, extubated, taken to recovery room in stable condition. Needle, instrument, sponge counts were correct. Blood loss: 10 mL Specimen: Appendix, cold forceps biopsy of pelvic peritoneum Complications: none Post-operative Condition: stable Disposition: PACU
[2023-08-28] MEDS: ONDANSETRON 4 MG/2 ML INJ IV (13:03)
--- NOTE | 2023-08-28 13:04 | SUR.PHASEI ---
Patient reported nausea. Zofran ordered by Dr. Casey and was given. Quease provided.
[2023-08-28] MEDS: diphenhydrAMINE 50 MG/ML VIAL 25 MG IV (13:21)
[2023-08-28] MEDS: hydrOXYzine 50 MG/ML INJ 25 MG IM (13:23)
--- NOTE | 2023-08-28 13:26 | SUR.PHASEI ---
Addendum entered by Robby Cooley R.N. 08/28/23 13:29: Erythema around face and neck. Dr. Casey evaluated patient. See below note. Original Note: Patient frequently scratching/rubbing face and neck and also reported continued nausea. Dr. Casey notified. Benadryl and vistaril ordered and given.
--- NOTE | 2023-08-28 13:42 | SUR.PHASEI ---
Patient dozing. Easily aroused. Reported improved itching but no change in nausea.
[2023-08-28] MEDS: OXYCODONE IR 5 MG TABLET PO (14:29)
== END 2023-08-28 14:33 | disposition home or self-care (01) ==
PROVIDERS: PCP Family Medicine; Referring Provider Surgery; Visit Provider Surgery
PROC: 0DTJ4ZZ Resection of Appendix, Percutaneous Endoscopic Approach (ICD-10-PCS; CPT 44970; principal; 2023-08-28 11:45)
DX: K35.80 Unspecified acute appendicitis (principal); N80.399 Endometriosis of the pelvic peritoneum, other specified sites, unspecified depth; N83.291 Other ovarian cyst, right side; N73.6 Female pelvic peritoneal adhesions (postinfective)
CPT/HCPCS: 44970; J0171; J1100; J1170; J1200; J1885; J2250; J2405; J2704; J3010; J3410